=== PATIENT | male | born 1990 ===

== ENCOUNTER 2022-04-23 02:31 | Emergency (ER) | payer SELFPAY ==
--- NOTE | 2022-04-23 04:20 | XRay Report ---
LEFT HAND 3 VIEW(S) INDICATION / CLINICAL INFORMATION: injury/LACERATION COMPARISON: None available. FINDINGS: No radiopaque foreign bodies are demonstrated. Flexion deformity at the DIP joint small finger may re flect a chronic finding, correlation recommended. The osseous structures of the hand demonstrate no a cute fractures. Visualized soft tissues appear intact. IMPRESSION: 1. No acute fracture. No significant abnormality. 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 Signer Name: Mikael Griffith II, MD Signed: 04/23/2022 4:16 AM Workstation Name: [id number]
[2022-04-23] MEDS ORDERED: LIDOCAINE (1%) 10 MG/1 ML VIAL 20 ML MDV INFILTRATI ONE (06:17)
[2022-04-23] MEDS ORDERED: HYDROcodone/ACETAMINOPHEN 5-325 MG TAB PO ONE (06:17)
[2022-04-23] MEDS ORDERED: TETANUS,DIPH,PERTUSS(ACELL) VACCINE 0.5 ML SYRINGE IM ONE (06:17)
[2022-04-23] MEDS ORDERED: LIDOCAINE-MPF (1%) 10 MG/1 ML VIAL 5 ML INFILTRATI ONE (06:23)
--- NOTE | 2022-04-23 07:03 | Emergency Department Report ---
ED General Adult HPI - General Chief complaint: Wound/Laceration Stated complaint: CUT HAND Source: patient Mode of arrival: Ambulatory Limitations: No Limitations - History of Present Illness Initial comments: Patient 32-year-old male who presents for left hand laceration states he cut his left hand on a fiberglass drinking cup. There is no obvious nerve muscle or tendon damage. There is approximately a 4 cm laceration to left wrist and 1 cm laceration left palm. Bleeding controlled by direct pressure self applied at home. Last tetanus unknown. Patient states pain is 5/10. Pain is exacerbated by palpation and movement. Pain is relieved by nothing tried. - Related Data Previous Rx's Medication Instructions Recorded Last Taken Type cephALEXin [Keflex] 500 mg PO Q8HR 7 Days #21 cap 04/23/22 Unknown Rx traMADoL [Ultram] 50 mg PO Q6HR PRN #12 tablet 04/23/22 Unknown Rx Allergies Allergy/AdvReac Type Severity Reaction Status Date / Time No Known Allergies Allergy Unverified 04/23/22 03:31 ED Review of Systems ROS: Stated complaint: CUT HAND Other details as noted in HPI Constitutional: denies: chills, fever Eyes: denies: eye pain, eye discharge, vision change ENT: denies: ear pain, throat pain Respiratory: denies: cough, shortness of breath, wheezing Cardiovascular: denies: chest pain, palpitations Endocrine: no symptoms reported Gastrointestinal: denies: abdominal pain, nausea, diarrhea Genitourinary: denies: urgency, dysuria Musculoskeletal: other (Laceration left hand and wrist). denies: back pain, joint swelling, arthralgia Skin: denies: rash, lesions Neurological: denies: headache, weakness, paresthesias Psychiatric: denies: anxiety, depression Hematological/Lymphatic: denies: easy bleeding, easy bruising ED Past Medical Hx - Medications Home Medications: Home Medications Medication Instructions Recorded Confirmed Last Taken Type cephALEXin [Keflex] 500 mg PO Q8HR 7 Days #21 cap 04/23/22 Unknown Rx traMADoL [Ultram] 50 mg PO Q6HR PRN #12 tablet 04/23/22 Unknown Rx ED Physical Exam - General Limitations: No Limitations General appearance: alert, in no apparent distress - Head Head exam: Present: normocephalic - Eye Eye exam: Present: EOMI Pupils: Present: normal accommodation - ENT ENT exam: Present: mucous membranes moist - Neck Neck exam: Present: normal inspection, full ROM. Absent: tenderness - Respiratory Respiratory exam: Present: normal lung sounds bilaterally. Absent: respiratory distress, wheezes - Cardiovascular Cardiovascular Exam: Present: regular rate, normal rhythm, normal heart sounds. Absent: systolic murmur, diastolic murmur, rubs, gallop - GI/Abdominal GI/Abdominal exam: Present: soft, normal bowel sounds. Absent: distended, tenderness - Rectal Rectal exam: Present: deferred - Extremities Exam Extremities exam: Present: full ROM - Expanded Upper Extremity Exam Left Hand Wrist exam: Present: full ROM, tenderness (Laceration site), laceration (4 cm left hand irregular laceration.) Neuro motor exam: Present: wrist extension intact, thumb opposition intact, thumb IP flexion intact, thumb adduction intact, fingers 2-5 abduction intact Neurosensory exam: Present: radial nerve intact Vascular: Present: normal capillary refill - Back Exam Back exam: Present: normal inspection, full ROM. Absent: CVA tenderness (R), CVA tenderness (L) - Neurological Exam Neurological exam: Present: alert, oriented X3, CN II-XII intact, motor sensory deficit - Expanded Neurological Exam Expanded Patient oriented to: Present: person, place, time Speech: Present: fluid speech Motor strength exam: RUE: 5, LUE: 5, RLE: 5, LLE: 5 Best Eye Response ([place]): (4) open spontaneously Best Motor Response ([place]): (6) obeys commands Best Verbal Response ([place]): (5) oriented [place] Total: 15 - Psychiatric Psychiatric exam: Present: normal affect, normal mood - Skin Skin exam: Present: warm, dry, intact, normal color. Absent: rash ED Course Vital Signs 04/23/22 03:31 Temperature 98.2 F Pulse Rate 90 Respiratory 16 Rate Blood Pressure 136/82 O2 Sat by Pulse 100 Oximetry - Laceration /Wound Repair Left Plantar Hand Wound Location: upper extremity (Left hand 6 cm laceration superficial no nerve muscle or tendon damage. Distal pulses intact [employer]OTWELD O[employer]ATOR less than 3 seconds bilateral) Wound Explored: clean Irrigated w/ Saline (ccs): 100 Betadine Prep?: Yes Anesthesia: 1% Lidocaine Volume Anesthetic (ccs): 4 (Anesthesia achieved) Wound Debrided: None required x-ray negative followed by Suture Size/Type: 3:0 Number of Sutures: 12 Layer Closure?: No Sterile Dressing Applied?: Yes (Nonstick 4 x 4's and [place]) Progress: Left hand laceration sick centimeter. Site cleaned Betadine solution. Anesthesia 1% lidocaine x4 cc anesthesia is achieved. Wound irrigated 100 cc sterile saline, wound closed with 3-0 Prolene x12 sutures. Edges well approximated sterile dressing applied bleeding is controlled patient tolerated procedure with minimal distress CMS remains intact. Patient given wound care instructions verbalized agreement and understanding of same. Including follow- up primary care doctor in 2 days for wound check, 7 to 10 days for suture removal. ED Medical Decision Making - Radiology Data Radiology results: report reviewed, image reviewed LEFT HAND 3 VIEW(S) INDICATION / CLINICAL INFORMATION: injury/LACERATION COMPARISON: None available. FINDINGS: No radiopaque foreign bodies are demonstrated. Flexion deformity at the DIP joint small finger may reflect a chronic finding, correlation recommended. The osseous structures of the hand demonstrate no acute fractures. Visualized soft tissues appear intact. IMPRESSION: 1. No acute fracture. No significant abnormality. 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 Signer Name: Lucinda Griffith II, MD Signed: 04/23/2022 4:16 AM Workstation Name: [id number] Transcribed By: ZAYNAB Dictated By: LUCINDA GRIFFITH II, MD Electronically Authenticated By: LUCINDA GRIFFITH II, MD Signed Date/Time: 04/23/22415 DD/ 4 TD/TT: - Medical Decision Making Left hand laceration repair see procedure note. Sterile dressing intact all bleeders controlled patient tolerated procedure with minimal distress. Patient DC'd home in stable condition at this time patient follow-up primary care doctor in 2 days for wound check. 7 to 10 days for suture removal. Critical care attestation.: If time is entered above; I have spent that time in minutes in the direct care of this critically ill patient, excluding procedure time. ED Disposition Clinical Impression: Laceration of hand, left Qualifiers: Encounter type: initial encounter Foreign body presence: without foreign body Qualified Code(s): S61.412A - Laceration without foreign body of left hand, initial encounter Disposition: HOME / SELF CARE / HOMELESS Is pt being admited?: No Does the pt Need Aspirin: No Condition: Stable Instructions: Sutures, [place], or Adhesive Wound Closure, [id number] Additional Instructions: Take medications as prescribed, follow-up with your doctor in 2 days. Follow-up with your doctor in 7 to 10 days for suture removal. Symptoms of infection as directed. Turn to ED should symptoms worsen. Prescriptions: cephALEXin [Keflex] 500 mg PO Q8HR 7 Days #21 cap traMADoL [Ultram] 50 mg PO Q6HR PRN #12 tablet PRN Reason: Pain Referrals: ROSALINA KENT MD [Staff Physician] - 3-5 Days Forms: Work/School Release Form(ED) Time of Disposition: 07:08
[2022-04-23 07:32] VITALS: BP 150/91
== END 2022-04-23 07:27 | disposition home or self-care (01) ==
LOC: ED 02:31
DX: S61.411A Laceration without foreign body of right hand, initial encounter (principal); Z79.899 Other long term (current) drug therapy; W25.XXXA Contact with sharp glass, initial encounter; Y93.89 Activity, other specified; Y92.89 Other specified places as the place of occurrence of the external cause; Y99.8 Other external cause status
CPT/HCPCS: 12002; 73130; 90471; 90715; 99283; J3490